=== PATIENT | male | born 1975 | race American Indian/Alaskan Native ===

== ENCOUNTER 2023-02-20 06:50 | Emergency (ER) | payer BC, MEDICAID, OTHER ==
[2023-02-20] MEDS ORDERED: Albuterol/Ipratropium 3.0-0.5 MG/3 ML Neb Soln NEB ONE (07:03)
[2023-02-20] MEDS ORDERED: methylPREDNISolone Sodium Succinate 125 MG/2 ML SDV IM ONE (07:03)
[2023-02-20] MEDS ORDERED: Dexamethasone 4 MG/ML SDV IM ONE (07:08)
[2023-02-20 07:14] VITALS: BP 159/93
[2023-02-20] MEDS ORDERED: Albuterol/Ipratropium 3.0-0.5 MG/3 ML Neb Soln ONE (07:15)
[2023-02-20 08:21] VITALS: PULSE 68
== END 2023-02-20 07:44 | disposition home or self-care (01) ==
LOC: DL.ED 06:50
DX: J45.21 Mild intermittent asthma with (acute) exacerbation (principal); I10 Essential (primary) hypertension; Z91.030 Bee allergy status
CPT/HCPCS: 94640; 96372; 99284; J1100; J7620-GY

== ENCOUNTER 2024-05-19 05:59 | Inpatient (IN) | payer MEDICAID ==
[2024-05-19 06:23] LABS: BASOPHILS PERCENT AUTO 0.3 % (0.0-1.0); EOSINOPHILS PERCENT AUTO 6.6 % (1.0-3.0); HEMATOCRIT 48.9 % (40.0-54.0); LYMPHOCYTES PERCENT AUTO 31.2 % (20.5-50.1); MEAN CORPUSCULAR HEMOGLOBIN 30.2 pg (27.0-34.0); MEAN CORPUSCULAR HGB CONC 34.8 g/dL (33.0-35.0); MONOCYTES PERCENT AUTO 14.2 % (2-8); NEUTROPHILS PERCENT AUTO 47.7 % (42.2-75.2); PLATELET COUNT,PLT 149 10^3/uL (150-450); RED BLOOD CELL COUNT 5.62 10^6/uL (4.6-6.2); WHITE BLOOD CELL COUNT,WBC 6.5 10^3/uL (5.0-10.0)
[2024-05-19] MEDS: Pantoprazole 40 MG Vial IVPUSH ONE (06:32)
[2024-05-19] MEDS: MVI, Adult with Vitamin K 10 ML, Folic Acid 1 MG, Thiamine 100 MG in Lactated Ringers 1... IV ONE (06:35)
[2024-05-19 06:36] LABS: ALANINE AMINOTRANSFERASE,ALT 80 U/L (16-63); ALBUMIN 3.7 g/dL (3.4-5.0); ALKALINE PHOSPHATASE 70 U/L (46-116); ANION GAP 15.1 mEq/L (7-13); ASPARTATE AMNIOTRANSFERASE,AST 79 U/L (15-37); BILIRUBIN TOTAL 0.6 mg/dL (0.2-1.0); BLOOD UREA NITROGEN,BUN 24 mg/dL (7-18); BUN/CREATININE RATIO 22.6 (No establ ref range); CALCIUM 8.1 mg/dL (8.5-10.1); CARBON DIOXIDE,CO2 23 mmol/L (21-32); CHLORIDE,CL 103 mmol/L (98-107); CREATININE 1.06 mg/dL (0.70-1.30); GLUCOSE RANDOM 104 mg/dL (70-99); LIPASE 43 U/L (16-77); MAGNESIUM 1.7 mg/dL (1.8-2.4); POTASSIUM,K 4.1 mmol/L (3.5-5.1); PROTEIN TOTAL,TP 7.3 g/dL (6.4-8.2); SODIUM,NA 137 mmol/L (136-145)
[2024-05-19 06:37] LABS: ESTIMATED GFR 86 mL/min (>=60); INR 1.1 (0.9-1.2)
[2024-05-19] MEDS: LORazepam 2 MG/ML SDV IVPUSH ONE ×2 (06:45→07:51)
[2024-05-19] MEDS: Iopamidol 612 MG/ML 100 ML Bottle IVPUSH ONE (06:53)
[2024-05-19] MEDS: Ondansetron 4 MG/2 ML SDV IV ONE (07:49)
[2024-05-19] MEDS: Ondansetron 4 MG/2 ML SDV IVPUSH ONE (07:51)
[2024-05-19] MEDS: Famotidine 20 MG/2 ML SDV IVPUSH ONE (07:51)
[2024-05-19] MEDS: Nicotine 21 MG/24 Hr Patch TRDERM ONE (07:51)
[2024-05-19] MEDS: Magnesium Sulfate/Water 2 GM in Premix Bag 1 BAG IV ONE (07:52)
[2024-05-19] MEDS: Sodium Chloride 0.9% 1,000 ML IV ONE (07:53)
[2024-05-19 08:03] LABS: APPEARANCE,URINE CLEAR (CLEAR); BILIRUBIN,URINE NEGATIVE (NEGATIVE); COLOR,URINE YELLOW (YELLOW); GLUCOSE,URINE NEGATIVE (NEGATIVE); KETONES,URINE NEGATIVE (NEGATIVE); LEUKOCYTE ESTERASE,URINE NEGATIVE (NEGATIVE); NITRITE,URINE NEGATIVE (NEGATIVE); OCCULT BLOOD,URINE NEGATIVE (NEGATIVE); PROTEIN,URINE NEGATIVE (NEGATIVE); UROBILINOGEN,URINE 0.2 mg/dL (0.2-1.0)
[2024-05-19 08:04] LABS: AMPHETAMINES,URINE NEGATIVE (NEGATIVE); BARBITURATES,URINE NEGATIVE (NEGATIVE); BENZODIAZEPINE,URINE NEGATIVE (NEGATIVE); MDMA (ECSTASY), URINE NEGATIVE (NEGATIVE); METHADONE,URINE NEGATIVE (NEGATIVE); METHAMPHETAMINES,URINE NEGATIVE (NEGATIVE); OPIATES,URINE NEGATIVE (NEGATIVE); OXYCODONE,URINE NEGATIVE (NEGATIVE); PHENCYCLIDINE,URINE NEGATIVE (NEGATIVE); TCA,URINE NEGATIVE (NEGATIVE)
[2024-05-19] MEDS ORDERED: Ondansetron 4 MG/2 ML SDV IVPUSH PRN (09:55)
[2024-05-19] MEDS ORDERED: Docusate Sodium 100 MG Cap PO PRN (09:55)
[2024-05-19] MEDS ORDERED: Flumazenil 0.1 MG/ML 5 ML MDV IVPUSH PRN (10:00)
[2024-05-19] MEDS ORDERED: Albuterol 6.7 GM Inhaler INH PRN (10:04)
[2024-05-19] MEDS: LORazepam 2 MG/ML SDV IVPUSH STA (11:12)
[2024-05-19] MEDS: Enoxaparin 40 MG/0.4 ML Syringe SUBCUT SCH (11:12)
[2024-05-19] MEDS: atorvaSTATin 10 MG Tab PO SCH (12:54)
[2024-05-19] MEDS: LORazepam 2 MG/ML SDV IVPUSH PRN (15:29)
[2024-05-19] MEDS: Losartan 25 MG Tab PO SCH (15:29)
[2024-05-19] MEDS: Sodium Chloride 0.9% 1,000 ML IV SCH (16:27)
[2024-05-19] MEDS: hydrALAZINE 20 MG/ML SDV IVPUSH PRN (17:43)
[2024-05-19] MEDS: Formoterol/Mometasone 200-5 MCG 8.8 GM Inhaler INH SCH (18:40)
[2024-05-19] MEDS: traZODone 50 MG Tab PO SCH (20:33)
[2024-05-20 06:48] LABS: ANION GAP 12.2 mEq/L (7-13); BILIRUBIN TOTAL 0.7 mg/dL (0.2-1.0); CALCIUM 8.1 mg/dL (8.5-10.1); CREATININE 0.94 mg/dL (0.70-1.30); EST CRCL DRUG DOSING (CG) 100.13 mL/min; MAGNESIUM 2.1 mg/dL (1.8-2.4); POTASSIUM,K 4.2 mmol/L (3.5-5.1); PROTEIN TOTAL,TP 6.4 g/dL (6.4-8.2)
[2024-05-20 06:56] LABS: A/G RATIO 0.88
[2024-05-20] MEDS: amLODIPine 5 MG Tab PO SCH (08:40)
[2024-05-20] MEDS: lamoTRIgine 100 MG Tab PO SCH (08:43)
[2024-05-20] MEDS: MVI, Adult with Vitamin K 10 ML, Folic Acid 1 MG, Thiamine 100 MG in Lactated Ringers 1... IV SCH (08:55)
[2024-05-20] MEDS: Pantoprazole 40 MG Vial IVPUSH SCH (09:36)
[2024-05-20] MEDS ORDERED: MVI, Adult with Vitamin K 10 ML, Folic Acid 1 MG, Thiamine 100 MG in Lactated Ringers 1... IV ONE (10:33)
[2024-05-21] MEDS: oxyCODONE 5 MG Tab PO PRN (16:17)
[2024-05-21] MEDS: chlordiazePOXIDE 10 MG Cap PO SCH (20:09)
[2024-05-22 06:20] LABS: HEMATOCRIT 47.8 % (40.0-54.0); HEMOGLOBIN 16.4 g/dL (14.0-18.0); MEAN CORPUSCULAR HEMOGLOBIN 30.7 pg (27.0-34.0); MEAN CORPUSCULAR HGB CONC 34.3 g/dL (33.0-35.0); MEAN CORPUSCULAR VOLUME 89.3 fL (80-100); RED BLOOD CELL COUNT 5.35 10^6/uL (4.6-6.2); WHITE BLOOD CELL COUNT,WBC 6.4 10^3/uL (5.0-10.0)
[2024-05-22 06:46] LABS: ALBUMIN 3.3 g/dL (3.4-5.0); ANION GAP 13.3 mEq/L (7-13); BILIRUBIN TOTAL 0.5 mg/dL (0.2-1.0); BUN/CREATININE RATIO 15.8 (No establ ref range); CALCIUM 8.9 mg/dL (8.5-10.1); CREATININE 1.01 mg/dL (0.70-1.30); EST CRCL DRUG DOSING (CG) 93.19 mL/min; POTASSIUM,K 4.3 mmol/L (3.5-5.1); PROTEIN TOTAL,TP 7.2 g/dL (6.4-8.2)
[2024-05-22 06:47] LABS: A/G RATIO 0.85
[2024-05-22] MEDS: Nicotine 7 MG/24 Hr Patch TRDERM SCH (11:42)
[2024-05-22 11:58] LABS: APPEARANCE,URINE CLEAR (CLEAR); BILIRUBIN,URINE NEGATIVE (NEGATIVE); COLOR,URINE YELLOW (YELLOW); GLUCOSE,URINE NEGATIVE (NEGATIVE); KETONES,URINE NEGATIVE (NEGATIVE); LEUKOCYTE ESTERASE,URINE NEGATIVE (NEGATIVE); NITRITE,URINE NEGATIVE (NEGATIVE); OCCULT BLOOD,URINE NEGATIVE (NEGATIVE); PROTEIN,URINE NEGATIVE (NEGATIVE); UROBILINOGEN,URINE 0.2 mg/dL (0.2-1.0)
[2024-05-22] MEDS: Acetaminophen 325 MG Tab PO PRN (19:19)
[2024-05-23 06:24] LABS: ANION GAP 12.3 mEq/L (7-13); CALCIUM 8.8 mg/dL (8.5-10.1); EST CRCL DRUG DOSING (CG) 94.13 mL/min; POTASSIUM,K 4.3 mmol/L (3.5-5.1)
[2024-05-23] MEDS: Nicotine 21 MG/24 Hr Patch TRDERM SCH (09:13)
[2024-05-24 06:49] LABS: ANION GAP 10.2 mEq/L (7-13); CREATININE 1.18 mg/dL (0.70-1.30); EST CRCL DRUG DOSING (CG) 79.77 mL/min; POTASSIUM,K 4.2 mmol/L (3.5-5.1)
[2024-05-24 07:55] VITALS: BP 129/80; PULSE 69
== END 2024-05-24 09:32 | disposition home or self-care (01) | DRG 897 ==
LOC: DL.ED 05:59 → DL.MS 08:39
PROVIDERS: ADMIT Internal Medicine; ATTEND Internal Medicine
DX: F10.139 Alcohol abuse with withdrawal, unspecified (principal); I10 Essential (primary) hypertension; F41.9 Anxiety disorder, unspecified; E83.42 Hypomagnesemia; E78.00 Pure hypercholesterolemia, unspecified; J45.909 Unspecified asthma, uncomplicated; H54.7 Unspecified visual loss; E86.0 Dehydration; E83.51 Hypocalcemia; G47.00 Insomnia, unspecified; F15.10 Other stimulant abuse, uncomplicated; F17.200 Nicotine dependence, unspecified, uncomplicated; Z86.16 Personal history of COVID-19; Z91.030 Bee allergy status; Z79.899 Other long term (current) drug therapy
CPT/HCPCS: 36415; 74177; 80048; 80053; 80305-QW; 80307; 81003; 82550; 82947; 83690; 83735; 84484; 85025; 85027; 85610; 93005; 93010; 94640; 94664; 96365; 96366; 96375; 96376; 99284; 99285-25; A9270-GY; J0360; J1650; J2060; J2405; J2470; J3411; J3475; J3490; J7030; J7120; Q9967